=== PATIENT | female | born 1985 | race Caucasian/White ===

== ENCOUNTER 2017-05-26 02:30 | Emergency (ER) | payer BC, OTHER ==
[~2017-05-26] VITALS: Ht 157.5 cm; Wt 58.0 kg
[~2017-05-26 02:30] MED LIST: ALBU8.5H3 INH; FLUT9.9S NS; HYDR-762 PO; PT DENIES; UDROBDM PO
[2017-05-26 02:53] VITALS: Ht 157.5 cm; Wt 58.0 kg
[2017-05-26] MEDS ORDERED: ERYT1OIN6 OP (04:14)
--- NOTE | 2017-05-26 04:24 | ERD ---
ER Documentation Chief Complaint Date/Time DATE: 05/26/17 TIME: 04:20 Chief Complaint Left lower eyelid pain. HPI 31-year-old female presents here to emergency department for complaints of left lower eyelid irritation and pain, patient's complaint of pain sharp pain 4/10 scale, causing some tearing. Patient denies any actual conjunctival irritation. Patient denies any vision changes. Patient denies any trauma. ROS All systems reviewed and are negative except as per history of present illness. Medications Home Meds Active Scripts Erythromycin Base (Erythromycin) 1 Gm Oint...g., 1 GM OP Q6 for 7 Days Prov:ELENA SCHREIBER MATCHING MACHINE OPERATOR 05/26/17 Hydrocodone Bit-Acetaminophen* ([place]*) 10-325 Mg Tablet, 1 TAB PO Q6 Y for PAIN , #15 TAB Prov:JENNY WOMACK PA-C 03/10/16 Fluticasone Propionate (Flonase Allergy Relief) 9.9 Ml [place].susp, 2 SPRAYS NS DAILY for 10 Days Prov:LUCERO ARREGUIN PA-C 06/15/15 Albuterol Sulfate* (Proair HFA*) 8.5 Gm Hfa.aer.ad, 2 PUFF INH Q4, #1 INH Prov:LUCERO ARREGUIN PA-C 06/15/15 Guaifenesin-Dextromethorphan* (Robitussin* DM) 100MG/10MG/5ML Syrup, 1 TSP PO Q4H Y for COUGH, #4 OZ Prov:LUCERO ARREGUIN PA-C 06/15/15 Reported Medications [none] No Conflict Check 04/25/12 [Pt Denies] No Conflict Check 12/06/10 Allergies Allergies: Coded Allergies: shellfish derived (Verified Allergy, Severe, STUFFY NOSE, "CAN'T BREATH". , 05/11/15) mold (Verified Allergy, Unknown, 05/26/17) Uncoded Allergies: GUERIN (Allergy, Unknown, 05/26/17) PMhx/Soc History of Surgery: No Anesthesia Reaction: No Hx Neurological Disorder: Yes (SEIZURE DISORDER not on meds) Hx Respiratory Disorders: Yes (bronchitis) Hx Cardiac Disorders: No Hx Psychiatric Problems: No Hx Miscellaneous Medical Probl: No Hx Alcohol Use: No Hx Substance Use: No Hx Tobacco Use: No FmHx Family History: No coronary disease, No diabetes, No other Physical Exam Vitals Vital Signs Date Time Temp Pulse Resp B/P Pulse Ox O2 Delivery O2 Flow Rate FiO2 05/26/17 02:53 98.9 98 18 118/77 98 Physical Exam GENERAL: The patient is well developed and appropriate for usual state of health, in no apparent distress. HEENT: Atraumatic. Bilateral eyes are PERRLA EOMs intact. Left lower eyelid noted to be erythematous. Ears: Normal tympanic membrane, no erythema or bulging. No ear canal swelling. No ear discharge. Nose: normal nasal turbinates , no erythema or swelling. Normal nasal discharge. Throat: oropharynx clear. No tonsillar swelling or tonsillar exudates. No lymphadenopathy. CHEST: Clear to auscultation bilaterally. There are no rales, wheezes or rhonchi. HEART: Regular rate and rhythm. No murmurs, clicks, rubs or gallops. No S3 or S4. ABDOMEN: Soft, nontender and nondistended. Good bowel sounds. No rebound or guarding. No gross peritonitis. No gross organomegaly or masses. No Johns sign or McBurney point tenderness. BACK: No midline or flank tenderness. EXTREMITIES: Equal pulses bilaterally. There is no peripheral clubbing, cyanosis or edema. No focal swelling or erythema. Full range of motion. Grossly neurovascularly intact. NEURO: Alert and oriented. Cranial nerves 2-12 intact. Motor strength in all 4 extremities with 5/5 strength. Sensation grossly intact. Normal speech and gait. SKIN: There is no apparent rash or petechia. The skin is warm and dry. HEMATOLOGIC AND LYMPHATIC: There is no evidence of excessive bruising or lymphedema. No gross cervical, axillary, or inguinal lymphadenopathy. Procedures/MDM Medical decision making: Patient symptoms was likely is consistent with blepharitis. No symptoms of orbital cellulitis, periorbital cellulitis, no conjunctivitis noted. No symptoms of any other emergencies at this time. Prescription was given for erythromycin, was advised to follow-up with primary care doctor 2-3 days, apply warm compress on affected area, patient was advised to return to emergency department for any worsening symptoms. Disposition: Home. Stable. Next Departure Diagnosis: Primary Impression: Blepharitis Blepharitis type: unspecified type Laterality: left Eyelid: lower Qualified Code: H01.005 - Blepharitis of left lower eyelid, unspecified type Condition: Stable Patient Instructions: Blepharitis ELENA SCHREIBER NP May 26, 2017 04:24
== END 2017-05-26 04:21 | disposition home or self-care (01) ==
LOC: FTE 02:30
DX: H01.005 Unspecified blepharitis left lower eyelid (principal)
CPT/HCPCS: 99283

== ENCOUNTER 2017-06-21 08:45 | Day surgery (SDC) | payer BC, OTHER ==
[~2017-06-21] VITALS: Ht 157.5 cm; Wt 57.3 kg
[~2017-06-21 08:45] MED LIST changes: +ERYT1OIN6 OP
[2017-06-21 10:31] VITALS: Ht 157.5 cm; Wt 57.3 kg
[2017-06-21] MEDS ORDERED: GABAPENTIN (10:36)
[2017-06-21] MEDS ORDERED: ACYCLOVIR (10:36)
[2017-06-21 12:53] VITALS: BP 102/59; PULSE 71; RESP 18
[2017-06-21] MEDS ORDERED: PROPOFOL 40 ML ONE (13:03)
[2017-06-21] MEDS ORDERED: LIDOCAINE 2% (SDV) 5 ML INJ ONE (13:03)
--- NOTE | 2017-06-21 13:36 | OPPN ---
Date/Time of Note Date/Time of Note DATE: 06/21/17 TIME: 13:33 Operative Report Preoperative Diagnosis abdominal pain GERD Postoperative Diagnosis gastritis GERD Operation/Procedure Performed EGD and biopsy Surgeon see signature line assistant real estate manager none Anesthesia: MAC, moderate sedation Estimated blood loss: none Transfusion Required none Specimen gastric biopsy Grafts/Implants none Complications none LEEANN BARRETO MD Jun 21, 2017 13:36
[2017-06-21 13:55] VITALS: BP 96/57; RESP 23
--- NOTE | 2017-06-21 14:59 | GILP ---
DATE OF PROCEDURE: NAME OF PROCEDURE: Esophagogastroduodenoscopy and biopsy. SURGEON: Leeann Mccracken MD PREOPERATIVE DIAGNOSES: 1. Abdominal pain. 2. Chronic heartburn. POSTOPERATIVE DIAGNOSES: 1. Gastroesophageal reflux disease. 2. Gastritis with erosions. 3. Gastric mucosal biopsies were taken for Helicobacter pylori test. INDICATION FOR THE PROCEDURE: Ms. Joan Wayne is a 31-year-old female patient who had upper a bdominal pain and chronic heartburn, not responding to therapy. The patient was scheduled for endos copic examination for further evaluation. The procedure and possible complications were well explained to the patient, the patient understood and consented to the procedure. DESCRIPTION OF PROCEDURE: Under the influence of anesthesia, the gastroscope was carefully introduc ed into the esophagus and under direct vision, it was advanced to the stomach and through the pyloru s, into the duodenal bulb and descending duodenum. FINDINGS: ESOPHAGUS: The patient had gastroesophageal reflux disease. STOMACH: She had gastritis with erosions. Gastric mucosal biopsies were taken for H. pylori test. DUODENUM: Normal. She tolerated the procedure very well and there was no complication from the procedure. At the end of the procedure, she was awake with stable vital signs and she was discharged home to the care of formerly [facility] family. IMPRESSION: 1. Gastroesophageal reflux disease. 2. Gastritis with erosions. 3. Gastric mucosal biopsies were taken for Helicobacter pylori test. PLAN: 1. Pantoprazole 40 mg p.o. q.a.m. 2. Await H. pylori test report. Dictated By: LEEANN GAMBLE/DAVON Conf#: [id number] DID#: [id number]
== END 2017-06-21 17:45 | disposition home or self-care (01) ==
LOC: GIL 08:45
PROVIDERS: ATTEND Internal Medicine Gastroenterology
DX: R12 Heartburn (principal); K29.60 Other gastritis without bleeding
CPT/HCPCS: 84703; 87081

== ENCOUNTER 2018-06-07 09:48 | Day surgery (SDC) | END 2018-06-07 12:36 | disposition home or self-care (01) ==